=== PATIENT | female | born 1950 | race Caucasian/White ===

== ENCOUNTER 2023-08-28 06:23 | Day surgery (SDC) | payer MEDICARE, OTHER, SELFPAY ==
--- OUTSIDE RECORDS SUMMARY | 2023-08-28 06:27 | XMS RPT_ITS | CCD ---
Author Name Unknown Address [id number] [place] [address] Organization [facility] Care Team Providers Care Account Development Executive Name Role Phone Akash Mccauley Unavailable Unavailable Unavailable Akash Mccauley Unavailable PauloBelLedy Unavailable Unavailable Iliana Maciel Unavailable AKASH MCCAULEY Primary Care Unavailable AKASH MCCAULEY Attending Unavailable Self, Referral Referring Unavailable AKASH MCCAULEY Primary Care Unavailable Sherlyn, Ms. Shraddha Perera Attending Unav ailable Sherlyn, Ms. Shraddha Perera Referring Unav ailable AKASH MCCAULEY Primary Care Unavailable [place], Juan Ronaldpatel Nelson Attending Unavailabl e [place], Juan Nelson Referring Unavailabl e AKASH MCCAULEY Primary Care Unavailable [place], Juan Nelson Attending Unavailabl e Gómez, Mrs. Garveypatel Nelson Referring Unavailabl e MCCAULEYAKASH BOCANEGRA Primary Care Unavailable TAYLOR, MsJuan TRIVEDI Attending Unavailabl e TAYLOR, MsJuan TRIVEDI Referring Unavailabl e Taylor, Ms. Iliana Trivedi Attending Unavailabl e Mando, Dr. Akash Trejo Primary Care Unavailab le GÓMEZ, Juan NELSON Attending Unavailabl e GÓMEZ, Juan NELSON Referring Unavailabl e Mando, Dr. Akash Trejo Primary Care Unavailab le Mando, Dr. Akash Trejo Primary Care Unavailab le Mando, Dr. Akash Trejo Attending Dr. Akash Luna Referring UnavailAkash Story MD Primary Care Provider AKASH MCCAULEY Attending Unavailable AKASH MCCAULEY Primary Care Unavailable Taylorpat MILLERIliana Unavailable AKASH MCCAULEY Referring Unavailable AKASH MCCAULEY Primary Care Unavailable AKASH MCCAULEY Referring Unavailable AKASH MCCAULEY Primary Care Unavailable AKASH MCCAULEY Primary Care Unavailable Allergies Allergy Classification Reported Allergen(s) Allergy Type Date of Onset Reaction(s) Facility Novobiocin (5 sources) Novobiocin; Translations: [novobiocin] Drug Allergy IU-Bwjlcezbeu-G [facility] Work Phone: Unclassified (17 sources) Novocain SOLN; Translations: [Novocain SOLN] Allergy to drug (finding) Nausea EN-Tzdmfdebcw-S [facility] Work Phone: (20 sources) Novobiocin; Translations: [novobiocin] Drug Allergy 08-07-2023 Unknown [facility] (8 sources) Procaine; Translations: [PROCAINE] Drug Allergy 08-07-2023 Nausea Only [facility] Work Phone: Medications Current Medications Medication Drug Class(es) Dates Sig (Normalized) Sig (Original) [id number] 200 actuat albuterol 0.09 mg/actuat metered dose inhaler (20 sources) beta2-Adrenergic Agonist Start: 08-07-2023 take 2 puff(s) by inhalation every four hours for wheezing albuterol 90 mcg/actuation inhaler Indications: Asthmatic bronchitis without complication, unspecified asthma severity, unspecified whether persistent Inhale 2 puffs every 4 hours if needed for wheezing or shortness of breath. 18 g 2 08/07/2023 Active Completed/Discontinued Medications Medication Drug Class(es) Dates Sig (Normalized) Sig (Original) atorvastatin 20 mg oral tablet (1 source) HMG-CoA Reductase Inhibitor Start: 01-15-2022 take 1 tablet by mouth at bedtime Atorvastatin Calcium 20 MG Oral Tablet TAKE 1 TABLET AT BEDTIME. Quantity: 30 Refills: 5 Ordered: 15-Jan-2022 Ronald Townsend Start : 15-Jan-2022 Active azithromycin 250 mg oral tablet (1 source) Macrolide Antimicrobial Start: 05-22-2022 Azithromycin 250 MG Oral Tablet TAKE 2 TABLETS ON DAY 1 THEN TAKE 1 TABLET A DAY FOR 4 DAYS. Quantity: 1 Refills: 0 Ordered: 22-May-2022 Taylorpat MILLER Iliana Start : 22-May-2022 Active Elderberry Zinc/Vit C/Immune Mouth/Throat Lozenge (12 sources) Elderberry Zinc/ Vit C/Immune Mouth/Throat Lozenge Quantity: 0 Refills: 0 Ordered: 11-May-2021 DO Active nitrofurantoin, macrocrystals 25 mg / nitrofurantoin, monohydrate 75 mg oral capsule (4 sources) Nitrofuran Antibacterial Start: 10-20-2021 End: 11-02-2021 take 1 capsule by mouth twice daily Nitrofurantoin Monohyd Macro 100 MG Oral Capsule Take 1 capsule twice daily Quantity: 14 Refills: 0 Ordered: 20-Oct-2021 Shraddha Barrientos Start : 20-Oct-2021 End : 02-Nov-2021 Complete ondansetron 4 mg oral tablet (1 source) Serotonin-3 Receptor Antagonist Start: 07-17-2021 take 1 tablet by mouth every eight hours Ondansetron HCl - 4 MG Oral Tablet TAKE 1 TABLET Every 8 hours PRN Quantity: 3 Refills: 0 Ordered: 17-Jul-2021 Tom Lu MD Start : 17-Jul-2021 Active phenazopyridine hydrochloride 100 mg oral tablet (4 sources) Start: 10-20-2021 End: 11-02-2021 take 1 tablet by mouth every six hours as needed Pyridium 100 MG Oral Tablet TAKE 1 TABLET EVERY 6 HOURS NEEDED. Quantity: 12 Refills: 0 Ordered: 20-Oct-2021 Shraddha Barrientos Start : 20-Oct-2021 End : 02-Nov-2021 Complete Vitamin D CAPS (17 sources) Vitamin D CAPS Quantity: 0 Refills: 0 Ordered: 08-Aug-2020 DO Active Womens Daily Formula Oral Tablet (17 sources) Start: 01-04-2020 take 1 tablet by mouth once daily Womens Daily Formula Oral Tablet TAKE 1 TABLET DAILY. Quantity: 0 Refills: 0 Ordered: 04-Jan-2020 Iliana Dumont Start : 04-Jan-2020 Active Problems Active Problems Problem Classification Problem Date Documented Da te Episodic/Chronic Asthma (20 sources) Mild intermittent asthma; Translations: [Asthma, unspecified type, with (acute) exacerbation] Onset: 05-22-2022 Resolved: 10-08-2019 Chronic Deficiency and other anemia (2 sources) Anemia, unspecified; Translations: [Anemia, unspecified] Onset: 08-22-2023 Episodic Disorders of lipid metabolism (20 sources) Hyperlipidemia; Translations: [Other and unspecified hyperlipidemia] Onset: 08-07-2023 08-07-2023 Chronic Genitourinary symptoms and ill-defined conditions (6 sources) Scalding pain on urination ; Translations: [Dysuria] Episodic Immunizations and screening for infectious disease (20 sources) Patient encounter status; Translations: [Other specified vaccination] Onset: 08-07-2023 08-07-2023 Episodic Melanomas of skin (12 sources) Malignant melanoma of upper limb; Translations: [Malignant melanoma of skin of upper limb, including shoulder] Onset: 08-07-2023 08-07-2023 Chronic Menopausal disorders (20 sources) Menopausal syndrome; Translations: [Symptomatic menopausal or female climacteric states] Onset: 07-26-2022 Chronic Other bone disease and musculoskeletal deformities (20 sources) Osteopenia; Translations: [Disorder of bone and cartilage, unspecified] Onset: 08-07-2023 08-07-2023 Episodic Other bone disease and musculoskeletal deformities (1 source) Other specified disorders of bone density and structure, multiple sites; Translations: [Oth disrd of bone density and structure, multiple sites] Onset: 07-26-2022 Episodic Other circulatory disease (1 source) Other specified symptoms and signs involving the circulatory and respiratory systems; Translations: [Oth symptoms and signs involving the circ and resp systems] Onset: 05-22-2022 Episodic Other connective tissue disease (13 sources) Tendinitis of right rotator cuff; Translations: [Disorders of bursae and tendons in shoulder region, unspecified] Onset: 08-07-2023 08-07-2023 Episodic Other female genital disorders (15 sources) History of gynecological disorder; Translations: [Personal history of other genital system and obstetric disorders] Episodic Other lower respiratory disease (2 sources) Dyspnea; Translations: [Shortness of breath] Episodic Other lower respiratory disease (15 sources) Dyspnea on exertion; Translations: [Shortness of breath] Episodic Other non-traumatic joint disorders (11 sources) Shoulder pain; Translations: [Pain in joint, shoulder region] 05-10-2021 Episodic Other nutritional; endocrine; and metabolic disorders (2 sources) Obesity; Translations: [Obesity, unspecified] Chronic Other nutritional; endocrine; and metabolic disorders (6 sources) Overweight in adulthood with body mass index of 25 or more but less than 30; Translations: [Overweight] Onset: 08-07-2023 08-07-2023 Episodic Other nutritional; endocrine; and metabolic disorders (2 sources) Overweight; Translations: [Overweight] Onset: 08-07-2023 Episodic Other nutritional; endocrine; and metabolic disorders (2 sources) Body mass index (BMI) 27.0-27.9, adult; Translations: [Body mass index (BMI) 27.0-27.9, adult] Onset: 08-07-2023 Episodic Other screening for suspected conditions (not mental disorders or infectious disease) (15 sources) Encounter for screening for osteoporosis; Translations: [Encounter for other screening for malignant neoplasm of breast] Onset: 01-26-2022 Episodic Other skin disorders (2 sources) Disorder of skin; 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] Episodic Other upper respiratory infections (1 source) Upper respiratory infection; Translations: [Acute upper respiratory infections of unspecified site] Episodic Residual codes; unclassified (2 sources) Menopause present; Translations: [Asymptomatic postmenopausal status (age-related) (natural)] Episodic Residual codes; unclassified (4 sources) Asymptomatic menopausal state; Translations: [Asymptomatic menopausal state] Onset: 07-26-2022 Episodic Sprains and strains (9 sources) Sprain of shoulder; Translations: [Sprains and strains of other specified sites of shoulder and upper arm] Episodic Unclassified (2 sources) RT ARM PAIN 05-10-2021 Past or Other Problems Problem Classification Problem Date Documented Da te Episodic/Chronic Chronic obstructive pulmonary disease and bronchiectasis (20 sources) Mild chronic obstructive pulmonary disease; Translations: [Chronic airway obstruction, not elsewhere classified] Onset: 08-07-2023 Resolved: 08-07-2023 08-07-2023 Chronic Other circulatory disease (9 sources) Elevated blood pressure; Translations: [Elevated blood pressure reading without diagnosis of hypertension] Onset: 08-07-2023 Resolved: 08-07-2023 08-07-2023 Episodic Other lower respiratory disease (9 sources) Persistent cough; Translations: [Cough] Onset: 08-07-2023 Resolved: 08-07-2023 08-07-2023 Episodic Other nutritional; endocrine; and metabolic disorders (20 sources) Obese class I; Translations: [Obesity, unspecified] Onset: 08-07-2023 Resolved: 08-07-2023 08-07-2023 Chronic Unclassified (5 sources) Onset: 08-07-2023 08-07-2023 Results Test Name Value Interpretation Reference Range Facil ity Vital Signs Date Time Vital Sign Value Performing Clinician Facility 08-07-2023 11:46-0500 Body height 158.8 cm Akash Mccauley MD Work Phone: [facility] 08-07-2023 11:46-0500 Body mass index (BMI) [Ratio] 27.36 kg/m2 Akash Mccauley MD Work Phone: [facility] 08-07-2023 11:46-0500 Body weight 68.95 kg Akash Mccauley MD Work Phone: [facility] 08-07-2023 11:46-0500 Diastolic blood pressure 72 mm[Hg] Akash Mccauley MD Work Phone: [facility] 08-07-2023 11:46-0500 Heart rate 85 /min Akash Mccauley MD Work Phone: [facility] 08-07-2023 11:46-0500 SaO2% (BldA) [Mass fraction] 99 % Akash Mccauley MD Work Phone: [facility] 08-07-2023 11:46-0500 Systolic blood pressure 118 mm[Hg] Akash Mccauley MD Work Phone: [facility] 07-11-2022 08:44-0500 Body height 157.48 cm Akash O Mccauley Work Phone: [facility] Work Phone: 07-11-2022 08:44-0500 Body mass index (BMI) [Ratio] 30.73 kg/m2 Akash O Mccauley Work Phone: [facility] Work Phone: 07-11-2022 08:44-0500 Body surface area Derived from formula 1.77 m2 Akash O Mccauley Work Phone: [facility] Work Phone: 07-11-2022 08:44-0500 Body weight 76.2 kg Akash O Mccauley Work Phone: [facility] Work Phone: 07-11-2022 08:44-0500 Diastolic blood pressure 82 mm[Hg] Akash O Mccauley Work Phone: [facility] Work Phone: 07-11-2022 08:44-0500 Heart rate 72 /min Akash O Mccauley Work Phone: [facility] Work Phone: 07-11-2022 08:44-0500 Systolic blood pressure 140 mm[Hg] Akash O Mccauley Work Phone: [facility] Work Phone: 05-22-2022 08:30-0400 Body height 157.48 cm Akash O Mccauley Work Phone: [facility] Work Phone: 05-22-2022 08:30-0400 Body mass index (BMI) [Ratio] 30.18 kg/m2 Akash O Mccauley Work Phone: [facility] Work Phone: 05-22-2022 08:30-0400 Body surface area Derived from formula 1.76 m2 Akash O Mccauley Work Phone: [facility] Work Phone: 05-22-2022 08:30-0400 Body temperature 97.5 [degF] Akash O Mccauley Work Phone: [facility] Work Phone: 05-22-2022 08:30-0400 Body weight 74.84 kg Akash O Mccauley Work Phone: [facility] Work Phone: 05-22-2022 08:30-0400 Diastolic blood pressure 80 mm[Hg] Akash O Mccauley Work Phone: [facility] Work Phone: 05-22-2022 08:30-0400 Heart rate 72 /min Akash O Mccauley Work Phone: [facility] Work Phone: 05-22-2022 08:30-0400 Systolic blood pressure 138 mm[Hg] Akash O Mccauley Work Phone: [facility] Work Phone: 01-15-2022 12:57-0400 Systolic blood pressure 142 mm[Hg] Akash O Mccauley Work Phone: [facility] Work Phone: 01-11-2022 08:21-0400 Body height 157.48 cm Akash O Mccauley Work Phone: [facility] Work Phone: 01-11-2022 08:21-0400 Body mass index (BMI) [Ratio] 29.71 kg/m2 Akash O Mccauley Work Phone: [facility] Work Phone: 01-11-2022 08:21-0400 Body surface area Derived from formula 1.75 m2 Akash O Mccauley Work Phone: [facility] Work Phone: 01-11-2022 08:21-0400 Body weight 73.68 kg Akash O Mccauley Work Phone: [facility] Work Phone: 01-11-2022 08:21-0400 Diastolic blood pressure 70 mm[Hg] Akash O Mccauley Work Phone: [facility] Work Phone: 01-11-2022 08:21-0400 Heart rate 92 /min Akash O Mccauley Work Phone: [facility] Work Phone: 01-11-2022 08:21-0400 Systolic blood pressure 142 mm[Hg] Akash O Mccauley Work Phone: [facility] Work Phone: 11-02-2021 13:54-0400 Body height 157.48 cm Akash O Mccauley Work Phone: [facility] Work Phone: 11-02-2021 13:54-0400 Body mass index (BMI) [Ratio] 29.37 kg/m2 Akash O Mccauley Work Phone: [facility] Work Phone: 11-02-2021 13:54-0400 Body surface area Derived from formula 1.74 m2 Akash O Mccauley Work Phone: [facility] Work Phone: 11-02-2021 13:54-0400 Body weight 72.83 kg Akash O Mccauley Work Phone: [facility] Work Phone: 11-02-2021 13:54-0400 Diastolic blood pressure 72 mm[Hg] Akash O Mccauley Work Phone: [facility] Work Phone: 11-02-2021 13:54-0400 Heart rate 72 /min Akash O Mccauley Work Phone: [facility] Work Phone: 11-02-2021 13:54-0400 Systolic blood pressure 126 mm[Hg] Akash O Mccauley Work Phone: [facility] Work Phone: 10-20-2021 09:39-0400 Body height 157.48 cm Akash O Mccauley Work Phone: [facility] Work Phone: 10-20-2021 09:39-0400 Body mass index (BMI) [Ratio] 29.63 kg/m2 Akash O Mccauley Work Phone: [facility] Work Phone: 10-20-2021 09:39-0400 Body surface area Derived from formula 1.75 m2 Akash O Mccauley Work Phone: [facility] Work Phone: 10-20-2021 09:39-0400 Body weight 73.48 kg Akash O Mccauley Work Phone: [facility] Work Phone: 10-20-2021 09:39-0400 Diastolic blood pressure 82 mm[Hg] Akash O Mccauley Work Phone: [facility] Work Phone: 10-20-2021 09:39-0400 Heart rate 76 /min Akash O Mccauley Work Phone: [facility] Work Phone: 10-20-2021 09:39-0400 Systolic blood pressure 138 mm[Hg] Akash O Mccauley Work Phone: [facility] Work Phone: 05-23-2021 11:06-0400 Body height 157.48 cm Akash Eliaser Work Phone: [facility] [address] Work Phone: 05-23-2021 11:06-0400 Body mass index (BMI) [Ratio] 31.14 kg/m2 Akash Eliaser Work Phone: [facility] [address] Work Phone: 05-23-2021 11:06-0400 Body surface area Derived from formula 1.79 m2 Akash Colladoyder Work Phone: [facility] [address] Work Phone: 05-23-2021 11:06-0400 Body temperature 97.7 [degF] Akash Eliaser Work Phone: [facility] [address] Work Phone: 05-23-2021 11:06-0400 Body weight 77.23 kg Akash Mccauley Work Phone: [facility] [address] Work Phone: 05-23-2021 11:06-0400 Diastolic blood pressure 82 mm[Hg] Akash Cinthya Mccauley Work Phone: [facility] [address] Work Phone: 05-23-2021 11:06-0400 Heart rate 79 /min Akash Cinthya Mccauley Work Phone: [facility] [address] Work Phone: 05-23-2021 11:06-0400 Systolic blood pressure 149 mm[Hg] Akash Mendes Mccauley Work Phone: [facility] 300 Work Phone: 05-11-2021 08:54-0400 Body height 157.48 cm Akash Mccauley Work Phone: [facility] 300 Work Phone: 05-11-2021 08:54-0400 Body mass index (BMI) [Ratio] 30.91 kg/m2 Akash Mccauley Work Phone: [facility] 300 Work Phone: 05-11-2021 08:54-0400 Body surface area Derived from formula 1.78 m2 Akash Mccauley Work Phone: [facility] 300 Work Phone: 05-11-2021 08:54-0400 Body temperature 98.6 [degF] Akash Mccauley Work Phone: [facility] 300 Work Phone: 05-11-2021 08:54-0400 Body weight 76.66 kg Akash Mccauley Work Phone: [facility] 300 Work Phone: 05-11-2021 08:54-0400 Diastolic blood pressure 60 mm[Hg] Akash Mccauley Work Phone: [facility] 300 Work Phone: 05-11-2021 08:54-0400 Systolic blood pressure 126 mm[Hg] Akash Mccauley Work Phone: [facility] 300 Work Phone: 05-10-2021 11:38-0400 Body height 157.4 cm Akash Mccauley Other Phone: [facility] 05-10-2021 11:38-0400 Body temperature 98.06 [degF] Akash Mccauley Other Phone: [facility] 05-10-2021 11:38-0400 Diastolic blood pressure 79 mm[Hg] Akash Mccauley Other Phone: [facility] 05-10-2021 11:38-0400 Heart rate 79 /min Akash Eliaser Other Phone: [facility] 05-10-2021 11:38-0400 SaO2% (BldA) [Mass fraction] 95 % Akash Eliaser Other Phone: [facility] 05-10-2021 11:38-0400 Systolic blood pressure 134 mm[Hg] Akash Eliaser Other Phone: [facility] 02-01-2021 10:34-0400 Body height 157.48 cm Akash O Mccauley Work Phone: [facility] Work Phone: 02-01-2021 10:34-0400 Body mass index (BMI) [Ratio] 30.59 kg/m2 Akash O Mccauley Work Phone: [facility] Work Phone: 02-01-2021 10:34-0400 Body surface area Derived from formula 1.77 m2 Akash O Mccauley Work Phone: [facility] Work Phone: 02-01-2021 10:34-0400 Body weight 75.86 kg Akash O Mccauley Work Phone: [facility] Work Phone: 02-01-2021 10:34-0400 Diastolic blood pressure 80 mm[Hg] Akash O Mccauley Work Phone: [facility] Work Phone: 02-01-2021 10:34-0400 Heart rate 68 /min Akash O Mccauley Work Phone: [facility] Work Phone: 02-01-2021 10:34-0400 Systolic blood pressure 122 mm[Hg] Akash O Mccauley Work Phone: [facility] Work Phone: 01-04-2021 08:08-0400 Body height 157.48 cm Akash Eliaser Work Phone: [facility]-R[facility]Ttzz[facility] [address] [place] Work Phone: 01-04-2021 08:08-0400 Body mass index (BMI) [Ratio] 30.76 kg/m2 Akash Cinthya ColladoMccauley Work Phone: ZZ-Sssqiprxjb-Pseykd [address] [place] Work Phone: 01-04-2021 08:08-0400 Body surface area Derived from formula 1.78 m2 Akash Eliaser Work Phone: IY-Svstyqohvo-Lynpic d [address] [place] Work Phone: 01-04-2021 08:08-0400 Body weight 76.29 kg Akash Eliaser Work Phone: PI-Nlpuusofrn-Whuydq [address] [place] Work Phone: 01-04-2021 08:08-0400 Diastolic blood pressure 64 mm[Hg] Akash Colladoyder Work Phone: EO-Wpqoitanex-Aprfws d [address] [place] Work Phone: 01-04-2021 08:08-0400 Heart rate 68 /min Akash Eliaser Work Phone: CZ-Dnhlpsttpj-Lowivt [address] [place] Work Phone: 01-04-2021 08:08-0400 Systolic blood pressure 120 mm[Hg] Akash O Mccauley Work Phone: YH-Mfearyjkcw-Mvujqm [address] [place] Work Phone: Encounters Encounter Date Encounter Type Care Provider Facility Start: 08-22-2023 End: 08-23-2023 ambulatory [facility] Start: 08-22-2023 End: 08-22-2023 Subsequent hospital visit by physician [address] Procedures Date Procedure Procedure Detail Performing Clinician Start: 08-22-2023 CT CARDIAC SCORING W O IV CONTRAST AKASH MCCAULEY Start: 08-22-2023 CBC W Auto Different ial panel - Blood AKASH MCCAULEY Start: 08-22-2023 Comprehensive metabo lic 2000 panel - Serum or Plasma AKASH MCCAULEY Start: 08-22-2023 Ferritin [Mass/volum e] in Serum or Plasma AKASH MCCAULEY Start: 08-22-2023 IRON AND TIBC AKASH ARNOLD Start: 08-22-2023 Lipid panel AKASH BOCANEGRA Start: 08-22-2023 Ct heart no contrast quant eval coronry calcium Akash Mccauley MD Work Phone: Start: 08-22-2023 Lipid 1996 panel - S mark or Plasma [facility] Start: 08-21-2023 BI MAMMO BILATERAL S CREENING TOMOSYNTHESIS AKASH MCCAULEY Start: 08-21-2023 End: 08-21-2023 Screening digital breast tomosynthesis bi Akash Mccauley MD Work Phone: Start: 08-07-2023 PNEUMOCOCCAL CONJUGA TE VACCINE 20-VALENT IM AKASH MCCAULEY Start: 01-26-2022 Mammography Akash bocanegra MD Work Phone: Start: 01-12-2022 Lipid 1996 panel - S mark or Plasma Akash Mccauley MD Work Phone: Start: 01-12-2021 Echocardiography Akash Mccauley Work Phone: Start: 02-24-2020 Colonoscopy Akash bocanegra MD Work Phone: Start: 02-24-2020 Colonoscopy Akash andre Work Phone: Plan of Treatment Date Care Activity Detail Author Start: 02-23-2030 Screening for malignant neoplasm of colon [facility] Start: 08-22-2028 Lipid panel Lipid Panel [facility] Start: 01-12-2027 Lipid panel Lipid Panel [facility] Start: 08-21-2024 Screening for malignant neoplasm of breast Mammogram [facility] Start: 08-08-2024 Medicare Annual Wellness Visit Medicare Annual Wellness Visit (AWV) [facility] Start: 08-06-2024 End: 08-06-2024 Patient encounter procedure 08/06/2024 10:00 AM EST Office Visit [facility] [address] [facility] [address] [place] [id number] Asa Alegria PA-C [address] [facility] [address] [place] [id number] [facility] Start: 08-22-2023 End: 08-22-2023 Patient encounter procedure 08/22/2023 8:00 AM EST Appointment [address] [id number] [facility] Start: 08-07-2023 End: 08-07-2024 CBC W Auto Differential panel - Blood CBC and Auto Differential Lab Routine Asthmatic bronchitis without complication, unspecified asthma severity, unspecified whether persistent Expected: 08/07/2023 (Approximate), Expires: 08/07/2024 [facility] Work Phone: Immunizations Immunization Date Immunization Notes Care Provider Fa yahaira 08-07-2023 Pneumococcal conjuga te vaccine, 20-valent (PREVNAR 20) [facility] Work Phone: 01-01-2019 pneumococcal conjuga te vaccine, 13 valent; Translations: [Prevnar 13 Intramuscular Suspension] Akash Mccauley Work Phone: [facility] Work Phone: Payers Date Payer Category Payer Medicare [id number] 2015 Medicare MEDICARE MEDICAR E PART A AND B [id number] 2015-Present [address] [place] [address] [id number] 2015 Private Health Insurance [employer] [id number] 2015-Present [phone] [address] [address] [place] [address] [id number] 2015 Unknown 2015 Unknown [id number] 1950 Unknown [id number] 2.16.840.1.737407.3.579. 2.356 1950 Unknown [id number] 2.16.840.1.861797.3.579. 2.356 1950 Unknown [id number] 2.16.840.1.523128.3.579. 2.356 1950 Unknown [id number] 2.16.840.1.457687.3.579. 2.356 1950 Unknown [id number] 2.16.840.1.087823.3.579. 2.356 1950 Unknown [id number] 2.16.840.1.834774.3.579. 2.1069 1950 Unknown [id number] 2.16.840.1.769707.3.579. 2.1069 1950 Unknown [id number] 2.16.840.1.145577.3.579. 2.1069 1950 Unknown [id number] 2.16.840.1.759020.3.579. 2.1244 1950 Unknown [id number] 2.16.840.1.095055.3.579. 2.1243 1950 Unknown [id number] 2.16.840.1.711299.3.579. 2.1243 1950 Unknown [id number] 2.16.840.1.036120.3.579. 2.1245 Social History Date Type Detail Facility Start: 08-07-2023 Former smoker Former smoker [address] Work Phone: Tobacco smoking consumption unknown [facility] Start: 08-07-2023 Tobacco smoking status NHIS Ex-smoker [facility] Work Phone: End: 07-29-1974 History of tobacco use Current smoker [facility] Work Phone: End: 07-29-1974 History of tobacco use Cigarette Smoker [facility] Work Phone: Start: 08-07-2023 Tobacco use and exposure Smokeless tobacco non-user [facility] Work Phone: Start: 08-07-2023 Alcohol intake Current drinke r of alcohol (finding) [facility] Work Phone: Start: 08-07-2023 Tobacco use panel [facility] Work Phone: Start: 08-07-2023 Alcohol Comment occasional [facility] Work Phone: Start: 1950 Sex Assigned At Not on file [facility] Work Phone: Start: 07-28-2023 End: 08-21-2023 Exposure to SARS-CoV-2 (event) Not sure [facility] Clinical Notes 01-26-2020 to 08-07-2023 Akash Mccauley MD - 08/07/2023 11:30 AM EST Note Date & Type Note Facility 08-07-2023 History of Present illness Narrative Subjective Reason for Visit: Ciera Delgadillo is an 72 y.o. female here for a Medicare Wellness visit. Past Medical, Surgical, and Family History reviewed and updated in chart. Reviewed all medications by prescribing practitioner or clinical pharmacist (such as prescriptions, OTCs, herbal therapies and supplements) and documented in the medical record. HPI Asthma and COPD - rare albuterol usage. Needs refill to freshen. She is to get a monitor for the cough screening for reflux. To have EGD She has been to Pulmonology. To have a scope Melanoma a few years ago. Every 6 months with dermatology . Overweight down 16 pounds over the year Hyperlipidemia - up a year ago and declines meds. FMH of CAD in mother who was smoker..Negative stress when she had Covid. Will get CACS. Did smoke as teen. Pneumovax today Colonoscopy 02/24/20 Mammogram 01/26/22 Patient Care Team: Akash Mccauley MD as PCP - General Review of Systems Objective Vitals: BP 118/72 (BP Location: Left arm, Patient Position: Sitting) Pulse 85 Ht 1.588 m (5' 2.5 ) Wt 68.9 kg (152 lb) SpO2 99% BMI 27.36 kg/m Physical Exam Vitals reviewed. Constitutional: General: She is not in acute distress. Appearance: Normal appearance. HENT: Head: Normocephalic. Right Ear: Tympanic membrane, ear canal and external ear normal. Left Ear: Tympanic membrane, ear canal and external ear normal. Ears: Comments: Hearing aids Nose: Nose normal. Mouth/Throat: Pharynx: Oropharynx is clear. Eyes: Extraocular Movements: Extraocular movements intact. Conjunctiva/sclera: Conjunctivae normal. Pupils: Pupils are equal, round, and reactive to light. Neck: Vascular: No carotid bruit. Cardiovascular: Rate and Rhythm: Normal rate and regular rhythm. Pulses: Normal pulses. Heart sounds: Normal heart sounds. No murmur heard. Pulmonary: Effort: Pulmonary effort is normal. No respiratory distress. Breath sounds: Normal breath sounds. Abdominal: General: Abdomen is flat. Bowel sounds are normal. There is no distension. Palpations: Abdomen is soft. There is no mass. Tenderness: There is no abdominal tenderness. Musculoskeletal: Cervical back: Normal range of motion and neck supple. No tenderness. Lymphadenopathy: Cervical: No cervical adenopathy. Skin: General: Skin is warm and dry. Findings: No rash. Neurological: General: No focal deficit present. Mental Status: She is alert and oriented to person, place, and time. Psychiatric: Mood and Affect: Mood normal. Thought Content: Thought content normal. Judgment: Judgment normal. 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 She was treated for UTI in 10/17/21 with appropriate antibiotic coarse of Macrobid for 7 days. Patient reports symptoms remaining are aching and tired, doesn t feel as though UTI has completely resolved. She denies any dysuria or other urinary symptoms. No fever, N/V or pelvic pain. Patients denies any urinary incontinence and is not sexually active.She reports taking a bubble bath with a bath bomb 1-2 days before UTI symptoms started on 10/17/21. -[facility] Work Phone: 10-17-2021 History of Present illness Narrative Ciera is a 70 yo female, here today with complaints of possible UTI. She was treated for UTI in 10/17/21 with appropriate antibiotic coarse of Macrobid for 7 days. Patient reports symptoms remaining are aching and tired, doesn t feel as though UTI has completely resolved. She denies any dysuria or other urinary symptoms. No fever, N/V or pelvic pain. Patients denies any urinary incontinence and is not sexually active.She reports taking a bubble bath with a bath bomb 1-2 days before UTI symptoms started on 10/17/21. [facility] Work Phone: 05-09-2021 History of Present illness August Vang is a 70-year-old female presenting here for follow-up of her right shoulder injury from a couple weeks ago. She states pain is well controlled, she is doing some home exercises with improved range of motion. She has a friend that is an occupational therapist, and she is doing some gentle stretching and exercises with good tolerance. She takes naproxen on a as needed basis it does help when she takes it she is also using Biofreeze with good symptom improvement. She has not done any work overhead and minimal lifting. She is using caution to not overuse her left arm. [facility] Work Phone: 07-14-2020 History of Present illness Narrative Date of symptoms 07/14/2020Date of positive test 07/16/2021 patient is unvaccinated no history of Covid her oxygen home sats have been above 90%'sHAstuffyfever t 100 + took motrinno cpno calf pain or swellingsmoker formerwould like monoclonal he is reviewed the 5 page PDF. Patient states she is susceptible to nausea with IVs. [facility] Work Phone: 01-26-2020 History of Present illness Narrative Here for yearly check.Mammogram last year done 01/03/2020. Normal.Previous DEXA 01/20/2020, OsteopeniaTAHBSO not due to cancer. Denies vaginal discharge or other concernsColonoscopy 01/25/2020.HYPERLIPIDEMIA - Did not start Crestor last year as advised. Had pneumonia during that time and never started the medication. Not interested in starting the medicationSOB ON EXERTION - Would be interested in getting a nebulizer machine. Has used her granddaughter's machine for the past 1-2 years since she had pneumonia. Will occasionally have episodes of coughing and SOB. Uses the machine maybe every 1-3 weeks. No triggers that she has figured out. Sometimes walks without SOB, sometimes experiences SOB. Denies CP. FH mother with heart disease, however she was a smoker.Has been exercising. Walking with friend. Walks about 3-5 miles daily.Has been traveling with a group of 5 widows [facility] Work Phone: documented in this encounter [facility] Work Phone: Evaluation note* Diagnosis Screening mammogram, encounter for documented in this encounter [facility] Work Phone: Evaluation note* Diagnosis Ischemic heart disease screen Screening for ischemic heart disease documented in this encounter [facility] Work Phone: Evaluation note* Diagnosis Screening mammogram, encounter for documented in this encounter [facility] Work Phone: History of Present illness Narrative* Here for follow up * Hasn't started the Crestor yet. Wanting to get through all of her tests before starting this. * PFT's indicate Mild obstructive airway disease. * ECHO and stress test were OK * CXR was OK * Feels like SOB has been improving. Not needing her albuterol daily. Last time she used it was last week once. [facility] Work Phone: History of Present illness Narrative* Here for follow up * Hasn't started the Crestor yet. Wanting to get through all of her tests before starting this. * PFT's indicate Mild obstructive airway disease. * ECHO and stress test were OK * CXR was OK * Feels like SOB has been improving. Not needing her albuterol daily. Last time she used it was last week once. * Has been doing well. No concerns at this time. [facility] Work Phone: History of Present illness Narrative* CIERA DELGADILLO presents with complaints of dysuria. * Associated symptoms include internal burning, urgency, frequency, incontinence, suprapubic pain andbladder spasm, but no hematuria, no flank pain, no fever, no chills, no vaginal discharge, no vaginal itching, no dyspareunia, no nocturia, no vaginal pain, no vulvar pain, no lower back pain, no abdominal pain, no rectal pain, no nausea and no vomiting. * Here for complaints of pelvic pain, pressure, burning with urination and urgency. I episode of incontinence. Took a bath and used a bath bomb approximately one week ago, symptoms started yesterday. Drinking extra water and cranberry juice. [facility] Work Phone: History of Present illness Narrative* The patient is being seen for the subsequent annual wellness visit. * Past Medical, Surgical and Family History: reviewed and updated in chart. * Medications and Supplements: Review of all medications by a prescribing practitioner or clinical pharmacist (such as prescriptions, OTCs, herbal therapies and supplements) documented in the medical record. * No, the patient is not using opioids. * Patient Self Assessment of Health Status: good. * Tobacco use: The patient quit smoking 1974. * Alcohol use: User The patient reports rare alcohol use. * Illicit drug use: Non-User * Current diet: well balanced diet, does consume adequate fluids and does consume caffeine. * Exercise Frequency: regularly. * Depression/Suicide Screening: . * During the past 2 weeks, the patient has not felt down, depressed or hopeless. * During the past 2 weeks, the patient has not felt little interest or pleasure in doing things. * Hearing Impairment: Patient has significant hearing impairment, bilaterally, She uses a hearing aid. * Cognitive Impairment: No cognitive impairment observed, patient or family reported no cognitive impairment. * Bathing: performs independently. * Dressing: performs independently. * Walking: performs independently. * Toileting: performs independently. * Feeding: performs independently. * Personal Hygiene: performs independently. * Bowels: continent. * Bladder: continent. * Managing Finances: performs independently. * Shopping: performs independently. * Managing Medications: performs independently. * Housework / Basic Home Maintenance: performs independently. * Handling Transportation: performs independently. * Preparing Meals: performs independently. * Using the Telephone/ Communication Devices: performs independently. * Falls Risk Screening:. CIERA has not fallen in the last 6 months. * Home safety risk factors: no grab bars in the bathroom. * Advance directives:. Advanced Care Planning discussed and documented advance care plan or surrogatedecision maker documented in the medical record. Patient has living will. Patient has healthcare POA. * Patient's End of Life Decisions: End of life decisions were reviewed with the patient. I agree to follow the patient's decisions. * Additional Information: surrogates - Teddy and Hernesto Marrero. * Since she had COVID-19 over 2 years has had cough and dyspnea with exertion. Dr Skinner manages. She has inhaler to use as needed. Never used inhaled steroid regularly. PFT showed mild obstruction. Shedid not try Prilosec and will try that. And then consider a month of ICS * Has high cholesterol and does not want to take statins. Risk 14. -[facility] Work Phone: Reason for referral (narrative)* Consultation (Routine) - Authorized Specialty Diagnoses / Procedures Referred By Matthew t Referred To Contact Primary Care Diagnoses Routine general medical examination at health care facility Procedures 1 Year Follow Up In Primary Care - Wellness Exam Akash Mccauley MD [address] [facility], [place] [id number] Referral ID Status Reason Start Date Expiration Date V isits Requested Visits Authorized [id number] Authorized 08/07/2023 08/06/2024 1 1 * Imaging (Routine) - Authorized Specialty Diagnoses / Procedures Referred By Contac t Referred To Contact Radiology Diagnoses Screening mammogram, encounter for Procedures BI mammo bilateral screening tomosynthesis Akash Mccauley MD [address] [facility], [place] [phone] Referral ID Status Reason Start Date Expiration Date Visits Requested Visits Authorized [id number] Authorized Perform Procedure 08/07/2023 08/06/2024 1 1 * Imaging (Routine) - Pending Review Specialty Diagnoses / Procedures Referred By Matthew t Referred To Contact Radiology Diagnoses Ischemic heart disease screen Procedures CT cardiac scoring wo IV contrast Akash Mccualey MD [address] [facility], [place] [id number] Referral ID Status Reason Start Date Expiration Date Visits Requested Visits Authorized [id number] Pending Review Perform Procedure 08/07/2023 08/06/2024 1 1 [facility] Work Phone: Summary Purpose Family History No Family History Records FoundUnknown Family Member Name Dates Details Family history of malignant neoplasm of brain: Aunt, Uncle(V16.8, Z80.8) Status:Active Family history of acute myoc ardial infarction: Mother(V17.3, Z82.49) Status:Active Unknown Family Member Name Dates Details Family history of malignant neoplasm of brain: Aunt, Uncle(V16.8, Z80.8) Status:Active Family history of acute myoc ardial infarction: Mother(V17.3, Z82.49) Status:Active Unknown Family Member Name Dates Details Family history of malignant neoplasm of brain: Aunt, Uncle(V16.8, Z80.8) Status:Active Family history of acute myoc ardial infarction: Mother(V17.3, Z82.49) Status:Active Unknown Family Member Name Dates Details Family history of malignant neoplasm of brain: Aunt, Uncle(V16.8, Z80.8) Status:Active Family history of acute myoc ardial infarction: Mother(V17.3, Z82.49) Status:Active Unknown Family Member Name Dates Details Family history of malignant neoplasm of brain: Aunt, Uncle(V16.8, Z80.8) Status:Active Family history of acute myoc ardial infarction: Mother(V17.3, Z82.49) Status:Active Unknown Family Member Name Dates Details Family history of malignant neoplasm of brain: Aunt, Uncle(V16.8, Z80.8) Status:Active Family history of acute myoc ardial infarction: Mother(V17.3, Z82.49) Status:Active Unknown Family Member Name Dates Details Family history of malignant neoplasm of brain: Aunt, Uncle(V16.8, Z80.8) Status:Active Family history of acute myoc ardial infarction: Mother(V17.3, Z82.49) Status:Active Unknown Family Member Name Dates Details Family history of malignant neoplasm of brain: Aunt, Uncle(V16.8, Z80.8) Status:Active Family history of acute myoc ardial infarction: Mother(V17.3, Z82.49) Status:Active Unknown Family Member Name Dates Details Family history of malignant neoplasm of brain: Aunt, Uncle(V16.8, Z80.8) Status:Active Family history of acute myoc ardial infarction: Mother(V17.3, Z82.49) Status:Active Unknown Family Member Name Dates Details Family history of malignant neoplasm of brain: Aunt, Uncle(V16.8, Z80.8) Status:Active Family history of acute myoc ardial infarction: Mother(V17.3, Z82.49) Status:Active Unknown Family Member Name Dates Details Family history of malignant neoplasm of brain: Aunt, Uncle(V16.8, Z80.8) Status:Active Family history of acute myoc ardial infarction: Mother(V17.3, Z82.49) Status:Active Unknown Family Member Name Dates Details Family history of malignant neoplasm of brain: Aunt, Uncle(V16.8, Z80.8) Status:Active Family history of acute myoc ardial infarction: Mother(V17.3, Z82.49) Status:Active Unknown Family Member Name Dates Details Family history of malignant neoplasm of brain: Aunt, Uncle(V16.8, Z80.8) Status:Active Family history of acute myoc ardial infarction: Mother(V17.3, Z82.49) Status:Active Unknown Family Member Name Dates Details Family history of malignant neoplasm of brain: Aunt, Uncle(V16.8, Z80.8) Status:Active Family history of acute myoc ardial infarction: Mother(V17.3, Z82.49) Status:Active Unknown Family Member Name Dates Details Family history of malignant neoplasm of brain: Aunt, Uncle(V16.8, Z80.8) Status:Active Family history of acute myoc ardial infarction: Mother(V17.3, Z82.49) Status:Active Unknown Family Member Name Dates Details Family history of malignant neoplasm of brain: Aunt, Uncle(V16.8, Z80.8) Status:Active Family history of acute myoc ardial infarction: Mother(V17.3, Z82.49) Status:Active Unknown Family Member Name Dates Details Family history of malignant neoplasm of brain: Aunt, Uncle(V16.8, Z80.8) Status:Active Family history of acute myoc ardial infarction: Mother(V17.3, Z82.49) Status:Active Advance Directives No Advanced Directives Records FoundNo Advanced Directives Records FoundNo Advanced Directives Records FoundNo Advanced Directives Records FoundNo Advanced Directives Records FoundNo Advanced Directives Records FoundNo Advanced Directives Records Found Chief Complaint 1 year visit/BE.1 month follow-up.1 month follow-up.pt here for right shoulder pain. xrays from urgent care on 05/10. pt states was picking up vacuum when pain occurred. pain is dull 4-5Patient here for follow-up right shoulder pain. States it is getting better.Patient here for follow-up right shoulder pain. States it is getting better.* Pt states she had positive covid test saturday and would like antibody infusion. * A telephone visit (audio only) between the patient (at the originating site) and the provider (at the distant site) was utilized to provide this telehealth service. * Verbal consent was requested and obtained from CIERA DELGADILLO on this date, 07/17/2021 11:00 AM , for a telehealth visit. burning with urination x1 dayFollow-up UTI.Follow-up UTI.AWV Reason for Referral Specialty Diagnoses / Procedures Referred By Matthew bagley Referred To Contact Radiology Diagnoses Screening mammogram, encounter for Procedures BI mammo bilateral screening tomosynthesis Akash Mccauley MD [address] [facility], [place] [phone] Referral ID Status Reason Start Date Expiration Date Visits Requested Visits Authorized [id number] Authorized Perform Procedure 08/07/2023 08/06/2024 1 1 Specialty Diagnoses / Procedures Referred By Matthew bagley Referred To Contact Radiology Diagnoses Ischemic heart disease screen Procedures CT cardiac scoring wo IV contrast Akash Mccauley MD [address] [facility], [address] [address] Referral ID Status Reason Start Date Expiration Date Visits Requested Visits Authorized [id number] Pending Review Perform Procedure 08/07/2023 08/06/2024 1 1 Additional Source Comments INFORMATION SOURCE (unrecogn ized section and content) DATE CREATED AUTHOR AUTHOR'S ORGANIZ ATION 07/18/2022 [facility] DATE CREATED AUTHOR AUTHOR'S ORGANIZ ATION 07/18/2022 [employer] DATE CREATED AUTHOR AUTHOR'S ORGANIZ ATION 07/28/2022 [facility] DATE CREATED AUTHOR AUTHOR'S ORGANIZ ATION 08/11/2023 [facility] DATE CREATED AUTHOR AUTHOR'S ORGANIZ ATION 08/25/2023 [facility] DATE CREATED AUTHOR AUTHOR'S ORGANIZ ATION 08/26/2023 [facility] <item> Privacy Markings (unrecogniz ed section and content) Section Author: Blevins, Vaishnavi PROHIBITION ON REDISCLOSURE OF CONFIDENTIAL INFORMATION This notice accompanies a disclosure of information concerning a client made to you with the consent of such client. Reason for Visit (unrecogniz ed section and content) Specialty Diagnoses / Procedures Referred By Contac t Referred To Contact Radiology Diagnoses Screening mammogram, encounter for Procedures BI mammo bilateral screening tomosynthesis Akash Mccauley MD [address] [facility], [place] [phone] Referral ID Status Reason Start Date Expiration Date Visits Requested Visits Authorized [id number] Authorized Perform Procedure 08/07/2023 08/06/2024 1 1 Specialty Diagnoses / Procedures Referred By Contac t Referred To Contact Radiology Diagnoses Ischemic heart disease screen Procedures CT cardiac scoring wo IV contrast Akash Mccauley MD [address] [facility] [facility] [place] [phone] Referral ID Status Reason Start Date Expiration Date Visits Requested Visits Authorized [id number] Pending Review Perform Procedure 08/07/2023 08/06/2024 1 1 Care Teams (unrecognized sec tion and content) Account Development Executive Relationship Specialty Start Date End Date Akash Mccauley MD [address] [facility], [facility] [address] [place] [phone] PCP - General 08/19/19 Iliana Maciel APRN-OIL BURNER SERVICER AND INSTALLER [address] [facility], [place] [address] [place] [phone] PCP - MSSP ACO Attributed Provider 01/26/23 Account Development Executive Relationship Specialty Start Date End Date Akash Mccauley MD [address] [facility], [facility] [address] [place] [phone] PCP - General 08/19/19 Iliana Maciel, DYNAMICS AX TECHNICAL ARCHITECT-OIL BURNER SERVICER AND INSTALLER [address] [facility] [address] [place] [address] [facility] - [facility] Attributed Provider 01/26/23 FOR RECORDS PERTAINING TO PATIENTS WHO ARE OR HAVE BEEN ENROLLED IN A CHEMICAL DEPENDENCY/SUBSTANCEABUSE PROGRAM, SOME INFORMATION MAY BE OMITTED. This clinical summary was aggregated from multiple sources. Caution should be exercised in using it in the provision of clinical care. This summary normalizes information from multiple sources, and as a consequence, information in this document may materially change the coding, format and clinical context of patient data. In addition, data may be omitted in some cases. CLINICAL DECISIONS SHOULD BE BASED ON THE PRIMARY CLINICAL RECORDS. [facility] [employer] [facility]. provides no warranty or guarantee of the accuracy or completeness of information in this document.
[2023-08-28 06:57] VITALS: BP 140/65; PULSE 83; RESP 18; TEMP 36.2; O2SAT 100; BMI 27.8
[2023-08-28] MEDS: Lactated Ringers 1,000 ML 15 ML IV (07:08)
[2023-08-28 07:14] LABS: Hematocrit 26.7 % (37-47); Hemoglobin 7.4 g/dL (12.0-15.0)
--- NOTE | 2023-08-28 07:30 | IMM_PTH ---
PATHOLOGY RESULTS PATIENT: NELI DELGADILLO LOC: EN U#:[id number] AGE/SX: 72/F ROOM: RE08/28/[address]: Dr. Rony Rodgers DO : 1950 BED: DIS: 08/28/2023 SPEC #: [id number] RECD: 08/28/23 14:45 STATUS: ROSALINA REQ #: [id number] ANNIE: 08/28/23 07:[address]: Rony Rodgers DEPT: IMMUNOHISTOCHEMISTRY RECD BY: Tanesha Naylor ENTERED: 08/28/23 14:46 SP TYPE: IMMUNO OTHR DR: Dr. Akash Gilmore MD Tissues: Stomach, NOS Procedures: H Pylori (initial) PHYSICIAN & INSTITUTION [place] [id number] SPECIMEN INFORMATION: Tissue Source: A - Gastric ulcer Clinical Info: Cough Specimen Number: [id number] CPT code: 30279 METHODOLOGY: Deparaffinized sections of prefer/formalin-fixed tissue or PAP/DQ stained slides are incubated with monoclonal/polyclonal antibodies/oligonucleotide probes. Localization is made via biotin free immunoperoxidase method. Appropriate controls are performed and reacted as expected. Results on target cell population are indicated in the following table: RESULTS: ANTIBODY / CLONE RESULT Block A H Pylori (polyclonal) negative These tests were developed and their performance characteristics determined by [facility]. They may not have been cleared or approved by the U.S. Food and Drug Administration. The FDA has determined that such clearance or approval is not necessary. The above immunohistochemical/dualISH markers are ordered and reviewed by the Pathologist. INTERPRETATION: A. Gastric ulcer, biopsy: Negative for Helicobacter pylori organisms. AM:bharat 08/29/2023
--- NOTE | 2023-08-28 07:30 | EGD_PTH ---
PATHOLOGY RESULTS PATIENT: NELI DELGADILLO LOC: EN U#:[id number] AGE/SX: 72/F ROOM: RE08/28/[address]: Dr. Rony Rodgers DO : 1950 BED: DIS: 08/28/2023 SPEC #: [id number] RECD: 08/28/23 11:33 STATUS: ROSALINA ANNABEL #: [id number] ANNIE: 08/28/23 07:[address]: Rony Rodgers DEPT: SURGICAL PATHOLOGY RECD BY: Vicky Shannon ENTERED: 08/28/23 11:33 SP TYPE: EGD BIOPSY PENELOPE DR: Dr. Akash Gilmore MD Tissues: Gastric mucous membrane Esophageal mucous membrane Procedures: Special Stain Group II Surgery Specimen Level IV Alcian Blue/PAS (control) HEADER OPERATION: EGD - PH probe biopsy PRE-OP DIAGNOSIS: Cough TISSUE SUBMITTED: A - Gastric ulcer biopsy, B - Random esophagus biopsy MICROSCOPIC DIAGNOSIS A. Gastric ulcer, biopsy: Mucosal ulceration with associated acute inflammation. See comment. B. Esophagus, random biopsy: Gastroesophageal junctional mucosa with mild chronic inflammation. Changes of reflux. No evidence of goblet cell metaplasia. See comment. AM:bharat 08/29/2023 COMMENT A. The results of immunohistochemistry for Helicobacter pylori will be reported separately ([id number]). B. Alcian blue/PAS stain with matched control supports the above diagnosis. MICROSCOPIC DESCRIPTION Slides are reviewed. GROSS DESCRIPTION A - Received in fixative is one container labeled with the patient's name and designated biopsy gastric ulcer. The specimen consists of two irregular fragments of light oswald soft tissue that in aggregate measure 0.6 x 0.3 x 0.1 cm. The specimen is totally submitted in one cassette. B - Received in fixative is one container labeled with the patient's name and designated random esophagus biopsy. The specimen consists of multiple irregular fragments of light oswald soft tissue that in aggregate measure 1.0 x 0.4 x 0.1 cm. The specimen is totally submitted in one cassette. / SJ:bahrat 08/28/2023 TC:3 CPT: 41040 x2, 22606
--- NOTE | 2023-08-28 07:38 | HP.PCM_ITS ---
History and Physical Date of Admission: 08/28/23 72 F who presents to the office today for Pulmonology established 2021 for management of COPD with cough that resolved with treatment. Notes use of Nexium that has been helpful. ROS Const Constitutional: No anorexia, fatigue, fever(s), weight change or sleep problems Eyes Eyes: No change in vision ENT ENT: No abnormal hearing, difficulty swallowing, mouth lesions, tongue swelling or throat swelling Resp Respiratory: No cough or shortness of breath Cardio Cardiology: No chest pain at rest, chest pain with exertion, shortness of breath or dyspnea on exertion Gastro GI: Positive for heartburn; No difficulty swallowing Genitourinary-Female: No difficulty urinating or burning urination Musc Musculoskeletal: No joint pain, joint swelling, muscle weakness or decreased muscle mass Skin Skin: No hair loss in leg, yellowing of the eye, itchy eyes, rash, skin ulcer or skin swelling Neuro Neurology: No abnormal hearing, abnormal movements, confusion, unsteady gait/balance or memory loss Psych Psychiatric: No anxiety, No confusion and No memory loss Endo Endocrine: No fatigue or weight change Aller/Imm Allergy/Immunologic: No itchy eyes, throat swelling or tongue swelling Marcus/Lymp Hematologic/Lymphatic: No easy bleeding, easy bruising or enlarged lymph nodes Exam Const General: cooperative, healthy appearing, comfortable, no acute distress, well developed and well groomed Nutritional Appearance: average body habitus Orientation: alert, awake and oriented x3 HENMT Head: normal to inspection Ears: hearing grossly normal bilaterally Nose: external nose normal Mouth: oral mucosae normal Teeth and gingiva: dentition normal Throat: posterior oropharynx normal Eyes General: appearance normal, both eyes and all related structures Conjunctivae: conjunctivae normal Sclera: sclerae normal Pupils: PERRL EOM: EOM intact bilaterally Neck Neck: normal visual inspection, full ROM, no lymphadenopathy, no meningeal signs, trachea midline and supple Resp Effort & Inspection: normal respiratory effort, able to speak in complete sentences and symmetric chest movement Auscultation: Bilateral: Clear to Auscultation Cardio Palpation: normal PMI Rate: regular rate Rhythm: regular rhythm GI Inspection: normal to inspection and obesity (rotund abdomen) Auscultation: normal bowel sounds Percussion: normal to percussion Palpation: soft and no hepatosplenomegaly Musc Cervical Spine: normal cervical lordosis and cervical ROM normal Thoracic/Lumbar Spine: thoracic and lumbar spine normal to inspection Skin General: no rashes or lesions noted Neuro General: patient alert, patient awake, patient oriented x3, gait normal, tone normal, moves all extremities, no meningeal signs and no focal motor deficits Cranial Nerves: CN's II-XI intact bilaterally and PERRL Cognition: normal cognition Speech: speech normal Gait: normal gait Motor: muscle tone normal throughout Psych Appearance: grossly normal Quality Reporting Tobacco Screening ([facility] 138) Smoking Status: Never smoker Assessment and Plan Assessment and Plan (1) Cough: Status: Acute Qualifiers: Cough type: chronic Qualified Code(s): R05.3 - Chronic cough Plan: 72-year-old with past medical history of 2 COVID infections and likely postviral cough. However cough is responsive to PPI therapy. Therefore we will have her undergo an upper endoscopy with Eid study off of PPI therapy. We will be able to evaluate upper GI tract for any signs of esophagitis, Basurto's esophagus, hiatal hernia, gastritis and all things that are typical and atypical to cause a cough. I have examined the patient and the H&P has been reviewed. There are no clinical changes since date of exam.
[2023-08-28 07:55] VITALS: BP 107/56; BP 140/65; PULSE 87; RESP 18; TEMP 36.4; O2SAT 96
[2023-08-28 08:00] VITALS: BP 101/52; BP 140/65; PULSE 80; RESP 16; O2SAT 95
--- NOTE | 2023-08-28 08:00 | OP.CCLET_ITS ---
08/28/2023 Akash Gilmore Md Re : Upper GI endoscopy procedure for Ciera Mitchell Dear Mando This procedure was performed on Monday, August 28, 2023. My impressions and recommendations are as follows: Impressions : - Abnormal esophageal motility, suspicious for presbyesophagus. - Moderate Schatzki ring. Dilated. - Large hiatal hernia. - Gastric erosions with no bleeding and no stigmata of recent bleeding. - Non-bleeding gastric ulcer with no stigmata of bleeding. Biopsied. - Normal second portion of the duodenum. - Biopsies were taken with a cold forceps for evaluation of eosinophilic esophagitis. - The TREVINO pH capsule was positioned 32 cm from the incisors, which was 6 cm proximal to the GE junction. Recommendations : - Await pathology results. - Continue present medications. - Use Protonix (pantoprazole) 40 mg PO BID for 8 weeks. My findings are described in the full procedure note, which is enclosed. If I can be of further assistance, please feel free to contact me at . Sincerely, Rony Rodgesr, 08/28/2023 7:59:56 AM This report has been signed electronically.
--- NOTE | 2023-08-28 08:00 | OP.EGD_ITS ---
Patient Name: Ciera Mitchell Procedure Date: 08/28/2023 7:29 AM Date of : 1950 Age: 72 Procedure: Upper GI endoscopy Indications: Iron deficiency anemia, Suspected esophageal reflux Providers: Rony Rodgers DO Referring MD: Akash Gilmore Md Medicines: Monitored Anesthesia Care Patient Profile: This is a 72 year old female. Refer to note in patient chart for documentation of history and physical. Patient has symptoms of chronic cough. Complications: No immediate complications. Procedure: Pre-Anesthesia Assessment: - Prior to the procedure, a History and Physical was performed, and patient medications and allergies were reviewed. The patient is competent. The risks and benefits of the procedure and the sedation options and risks were discussed with the patient. All questions were answered and informed consent was obtained. Patient identification and proposed procedure were verified by the physician in the pre-procedure area. Mental Status Examination: alert and oriented. Airway Examination: normal oropharyngeal airway and neck mobility. Respiratory Examination: clear to auscultation. CV Examination: normal. Prophylactic Antibiotics: The patient does not require prophylactic antibiotics. Prior Anticoagulants: The patient has taken no anticoagulant or antiplatelet agents. ASA Grade Assessment: II - A patient with mild systemic disease. After reviewing the risks and benefits, the patient was deemed in satisfactory condition to undergo the procedure. The anesthesia plan was to use monitored anesthesia care (MAC). Immediately prior to administration of medications, the patient was re-assessed for adequacy to receive sedatives. The heart rate, respiratory rate, oxygen saturations, blood pressure, adequacy of pulmonary ventilation, and response to care were monitored throughout the procedure. The physical status of the patient was re-assessed after the procedure. After obtaining informed consent, the endoscope was passed under direct vision. Throughout the procedure, the patient's blood pressure, pulse, and oxygen saturations were monitored continuously. The Endoscope was introduced through the mouth, and advanced to the second part of duodenum. The upper GI endoscopy was accomplished without difficulty. The patient tolerated the procedure well. Scope In: 7:42:59 AM Scope Out: 7:51:44 AM Total Procedure Duration Time 0 hours 8 minutes 45 seconds Findings: Abnormal motility was noted in the esophagus. The cricopharyngeus was normal. There are extra peristaltic waves in the esophageal body. The distal esophagus/lower esophageal sphincter is spastic, but gives up passage to the endoscope. Tertiary peristaltic waves are noted. Biopsies were obtained from the proximal and distal esophagus with cold forceps for histology of suspected eosinophilic esophagitis. A moderate Schatzki ring was found at the gastroesophageal junction. A guidewire was placed and the scope was withdrawn. Dilation was performed with a Savary dilator with no resistance at 45 Fr. The dilation site was examined and showed moderate mucosal disruption. Estimated blood loss was minimal. The TREVINO capsule with delivery system was introduced through the mouth and advanced into the esophagus, such that the TREVINO pH capsule was positioned 32 cm from the incisors, which was 6 cm proximal to the GE junction. Suction was applied to the well of the TREVINO pH capsule to suck in the adjacent mucosa of the esophagus using the external vacuum pump set at a minimum vacuum pressure of 550 mmHg for 30 seconds. The TREVINO pH capsule was then deployed by depressing the plunger on top of the handle to advance the locking pin into the mucosa, thereby attaching the capsule to the esophagus. The plunger was then rotated a quarter turn clockwise to release the capsule from the delivery system. The delivery system was then withdrawn. Endoscopy was utilized for probe placement and diagnostic evaluation. A large hiatal hernia was present. A few localized erosions with no bleeding and no stigmata of recent bleeding were found in the gastric fundus. One non-bleeding cratered gastric ulcer with no stigmata of bleeding was found in the gastric body. The lesion was 4 mm in largest dimension. Biopsies were taken with a cold forceps for histology. Verification of patient identification for the specimen was done. Biopsies were taken with a cold forceps for Helicobacter pylori testing. Verification of patient identification for the specimen was done. The second portion of the duodenum was normal. Impression: - Abnormal esophageal motility, suspicious for presbyesophagus. - Moderate Schatzki ring. Dilated. - Large hiatal hernia. - Gastric erosions with no bleeding and no stigmata of recent bleeding. - Non-bleeding gastric ulcer with no stigmata of bleeding. Biopsied. - Normal second portion of the duodenum. - Biopsies were taken with a cold forceps for evaluation of eosinophilic esophagitis. - The TREVINO pH capsule was positioned 32 cm from the incisors, which was 6 cm proximal to the GE junction. Recommendation: - Await pathology results. - Continue present medications. - Use Protonix (pantoprazole) 40 mg PO BID for 8 weeks. Procedure Code(s): --- Professional --- 52871, Esophagogastroduodenoscopy, flexible, transoral; with insertion of guide wire followed by passage of dilator(s) through esophagus over guide wire 00655, 59,51, Esophagogastroduodenoscopy, flexible, transoral; with biopsy, single or multiple CPT copyright 2021 [employer]. All rights reserved. The codes documented in this report are preliminary and upon medical staff assistant review may be revised to meet current compliance requirements. Rony Rodgers DO 08/28/2023 7:59:56 AM This report has been signed electronically. Number of Addenda: 0 Note Initiated On: 08/28/2023 7:29 AM
[2023-08-28 08:05] VITALS: BP 120/61; BP 140/65; PULSE 78; RESP 16; O2SAT 96
[2023-08-28 08:11] VITALS: BP 108/62; BP 140/65; PULSE 82; RESP 16; TEMP 36.5; O2SAT 95
[2023-08-28 08:37] VITALS: BP 140/65
== END 2023-08-28 09:20 | disposition home or self-care (01) ==
LOC: EN 06:25 → AC 06:26
PROVIDERS: PCP Family Medicine; Referring Provider Family Medicine; Visit Provider Internal Medicine Gastroenterology
PROC: (CPT 43235; principal; 2023-08-28 07:25)
DX: K25.9 Gastric ulcer, unspecified as acute or chronic, without hemorrhage or perforation (principal); K44.9 Diaphragmatic hernia without obstruction or gangrene; D50.9 Iron deficiency anemia, unspecified; R05.3 Chronic cough; Z86.16 Personal history of COVID-19
CPT/HCPCS: 43248; 43239; 85014; 85018; 88305; 88313; 88342; J7120; J2405

== ENCOUNTER → 2023-08-29 | Outpatient (CLI) | payer MEDICARE, OTHER, SELFPAY ==
[2023-08-29 09:47] LABS: Absolute Lymphocyte Count 1.29 X10^3/uL (0.83-4.51); Absolute Neutrophil Count 7.1 X10^3/uL (2.0-7.7); Basophil# 0.03 X10^3/uL; Basophil% 0.3 % (0-1); Eosinophil# 0.06 X10^3/uL; Eosinophils% 0.7 % (0-5); Hematocrit 26.9 % (37-47); Hemoglobin 7.5 g/dL (12.0-15.0); Lymphocyte # 1.29 X10^3/ul (0.83-4.51); Lymphocyte % 14.2 % (19-41); Mean Corp Hgb Conc 27.9 g/dL (32-36); Mean Corpuscular Hgb 21.7 pg (27.0-32.0); Mean Platelet Vol. 9.2 fl (6.2-12.0); Monocyte# 0.62 X10^3/uL; Monocyte% 6.8 % (0-10); NRBC Flagged by Analyzer 0 % (0-5); Neutrophil # 7.06 X10^3/uL (2.7-7.7); Neutrophil % 77.7 % (47-70); Platelet Count 614 K/mm3 (150-450); RBC Distribution Width CV 15.7 % (11.6-14.6); RBC Distribution Width SD 44.4 fl (35.1-43.9); Red Blood Count 3.45 M/mm3 (4.2-5.4); White Blood Count 9.1 K/mm3 (4.4-11.0)
[2023-08-29 10:16] LABS: Vitamin B12 840 pg/mL (211-911)
--- OUTSIDE RECORDS SUMMARY | 2023-08-29 11:09 | XMS RPT_ITS | CCD ---
Author Name Unknown Address [address] [place] [address] Organization [facility] Care Team Providers Care Shot Hole Driller Name Role Phone Akash Mccauley Unavailable Unavailable Unavailable Akash Mccauley Unavailable PauloBelLedy Unavailable Unavailable Iliana Maciel Unavailable AKASH MCCAULEY Primary Care Unavailable AKASH MCCAULEY Attending Unavailable Self, Referral Referring Unavailable AKASH MCCAULEY Primary Care Unavailable Sherlyn, Ms. Shraddha Perera Attending Unav ailable Sherlyn, Ms. Shraddha Perera Referring Unav ailable AKASH MCCAULEY Primary Care Unavailable Herndon, Juan Ronaldpatel Nelson Attending Unavailabl e Herndon, Juan Nelson Referring Unavailabl e AKASH MCCAULEY Primary Care Unavailable Herndon, Juan Nelson Attending Unavailabl e Gómez, Mrs. [...] Unavailab le Mando, Dr. Akash Trejo Attending Unavailab le Mando, Dr. Akash Trejo Referring UnavailAkash Story MD Primary Care Provider AKASH MCCAULEY Attending Unavailable AKASH MCCAULEY Primary Care Unavailable Taylor MILLERIliana Unavailable AKASH MCCAULEY Primary Care Unavailable AKASH MCCAULEY Referring Unavailable AKASH MCCAULEY Primary Care Unavailable AKASH MCCAULEY Referring Unavailable AKASH MCCAULEY Primary Care Unavailable Allergies Allergy Classification Reported Allergen(s) Allergy Type Date of Onset Reaction(s) Facility Novobiocin (5 sources) Novobiocin; Translations: [novobiocin] Drug Allergy [facility] Work Phone: Unclassified (17 sources) Novocain SOLN; Translations: [Novocain SOLN] Allergy to drug (finding) Nausea [facility] [employer] Work Phone: (20 sources) Novobiocin; Translations: [novobiocin] Drug Allergy 08-07-2023 Unknown [facility] (8 sources) Procaine; Translations: [PROCAINE] Drug Allergy 08-07-2023 Nausea Only [facility] Work Phone: Medications Current Medications Medication Drug Class(es) Dates Sig (Normalized) Sig (Original) [id number] 200 actuat albuterol 0.09 mg/actuat metered dose [...] 158.8 cm Akash Mccauley MD Work Phone: [facility] 08-07-2023 11:46-0500 Body mass index (BMI) [Ratio] 27.36 kg/m2 Akash Mccauley MD Work Phone: [facility] 08-07-2023 11:46-0500 Body weight 68.95 kg Akash Mccauley MD Work Phone: [facility] 08-07-2023 11:46-0500 Diastolic blood pressure 72 mm[Hg] Akash Mccauley MD Work Phone: [facility] 08-07-2023 11:46-0500 Heart rate 85 /min Akash Mccauley MD Work Phone: [facility] 08-07-2023 11:46-0500 SaO2% (BldA) [Mass fraction] 99 % Akash Mccauley MD Work Phone: [facility] 08-07-2023 11:46-0500 Systolic blood pressure 118 mm[Hg] Akash Mccauley MD Work Phone: [facility] 07-11-2022 08:44-0500 Body height 157.48 cm Akash O Mccauley Work Phone: [facility] Work Phone: 07-11-2022 08:44-0500 Body mass index (BMI) [Ratio] 30.73 kg/m2 Akash O Mccauley Work Phone: [facility] Work Phone: 07-11-2022 08:44-0500 Body surface area Derived from formula 1.77 m2 Akash O Mccauley Work Phone: [facility] Work Phone: 07-11-2022 08:44-0500 Body weight 76.2 kg Akash O Mccauley Work Phone: [facility] Work Phone: 07-11-2022 08:44-0500 Diastolic blood pressure 82 mm[Hg] Akash O Mccauley Work Phone: [facility] Work Phone: 07-11-2022 08:44-0500 Heart rate 72 /min Akash O Mccauley Work Phone: [facility] Work Phone: 07-11-2022 08:44-0500 Systolic blood pressure 140 mm[Hg] Akash O Mccauley Work Phone: [facility] Work Phone: 05-22-2022 08:30-0400 Body height 157.48 cm Akash O Mccauley Work Phone: [facility] Work Phone: 05-22-2022 08:30-0400 Body mass index (BMI) [Ratio] 30.18 kg/m2 Akash O Mccauley Work Phone: [facility] Work Phone: 05-22-2022 08:30-0400 Body surface area Derived from formula 1.76 m2 Akash O Mccauley Work Phone: [facility] Work Phone: 05-22-2022 08:30-0400 Body temperature 97.5 [degF] Akash O Mccauley Work Phone: [facility] Work Phone: 05-22-2022 08:30-0400 Body weight 74.84 kg Akash O Mccauley Work Phone: [facility] Work Phone: 05-22-2022 08:30-0400 Diastolic blood pressure 80 mm[Hg] Akash O Mccauley Work Phone: [facility] Work Phone: 05-22-2022 08:30-0400 Heart rate 72 /min Akash O Mccauley Work Phone: [facility] Work Phone: 05-22-2022 08:30-0400 Systolic blood pressure 138 mm[Hg] Akash O Mccauley Work Phone: [facility] Work Phone: 01-15-2022 12:57-0400 Systolic blood pressure 142 mm[Hg] Akash O Mccauley Work Phone: [facility] Work Phone: 01-11-2022 08:21-0400 Body height 157.48 cm Akash O Mccauley Work Phone: [facility] Work Phone: 01-11-2022 08:21-0400 Body mass index (BMI) [Ratio] 29.71 kg/m2 Akash O Mccauley Work Phone: [facility] Work Phone: 01-11-2022 08:21-0400 Body surface area Derived from formula 1.75 m2 Akash O Mccauley Work Phone: [facility] Work Phone: 01-11-2022 08:21-0400 Body weight 73.68 kg Akash O Mccauley Work Phone: [facility] Work Phone: 01-11-2022 08:21-0400 Diastolic blood pressure 70 mm[Hg] Akash O Mccauley Work Phone: [facility] Work Phone: 01-11-2022 08:21-0400 Heart rate 92 /min Akash O Mccauley Work Phone: [facility] Work Phone: 01-11-2022 08:21-0400 Systolic blood pressure 142 mm[Hg] Akash O Mccauley Work Phone: [facility] Work Phone: 11-02-2021 13:54-0400 Body height 157.48 cm Aksah O Mccauley Work Phone: [facility] Work Phone: 11-02-2021 13:54-0400 Body mass index (BMI) [Ratio] 29.37 kg/m2 Akash O Mccauley Work Phone: [facility] Work Phone: 11-02-2021 13:54-0400 Body surface area Derived from formula 1.74 m2 Akash O Mccauley Work Phone: [facility] Work Phone: 11-02-2021 13:54-0400 Body weight 72.83 kg Akash O Mccauley Work Phone: [facility] Work Phone: 11-02-2021 13:54-0400 Diastolic blood pressure 72 mm[Hg] Akash O Mccauley Work Phone: [facility] Work Phone: 11-02-2021 13:54-0400 Heart rate 72 /min Akash O Mccauley Work Phone: [facility] Work Phone: 11-02-2021 13:54-0400 Systolic blood pressure 126 mm[Hg] Akash O Mccauley Work Phone: [facility] Work Phone: 10-20-2021 09:39-0400 Body height 157.48 cm Akash O Mccauley Work Phone: [facility] Work Phone: 10-20-2021 09:39-0400 Body mass index (BMI) [Ratio] 29.63 kg/m2 Akash O Mccauley Work Phone: [facility] Work Phone: 10-20-2021 09:39-0400 Body surface area Derived from formula 1.75 m2 Akash O Mccauley Work Phone: [facility] Work Phone: 10-20-2021 09:39-0400 Body weight 73.48 kg Akash O Mccauley Work Phone: [facility] Work Phone: 10-20-2021 09:39-0400 Diastolic blood pressure 82 mm[Hg] Akash O Mccauley Work Phone: [facility] Work Phone: 10-20-2021 09:39-0400 Heart rate 76 /min Akash O Mccauley Work Phone: [facility] Work Phone: 10-20-2021 09:39-0400 Systolic blood pressure 138 mm[Hg] Akash O Mccauley Work Phone: [facility] Work Phone: 05-23-2021 11:06-0400 Body height 157.48 cm Akash Eliaser Work Phone: [facility] [address] Work Phone: 05-23-2021 11:06-0400 Body mass index (BMI) [Ratio] 31.14 kg/m2 Akash Eliaser Work Phone: [facility] 300 Work Phone: 05-23-2021 11:06-0400 Body surface area Derived from formula 1.79 m2 Akash Colladoyder Work Phone: [facility] 300 Work Phone: 05-23-2021 11:06-0400 Body temperature 97.7 [degF] Akash Eliaser Work Phone: [facility] 300 Work Phone: 05-23-2021 11:06-0400 Body weight 77.23 kg Akash Mccauley Work Phone: [facility] [address] Work Phone: 05-23-2021 11:06-0400 Diastolic blood pressure 82 mm[Hg] Akash Cinthya Mccauley Work Phone: [facility] 300 Work Phone: 05-23-2021 11:06-0400 Heart rate 79 /min Akash Cinthya Mccauley Work Phone: [facility] 300 Work Phone: 05-23-2021 11:06-0400 Systolic blood pressure 149 mm[Hg] Akash Mendes Mccauley Work Phone: [facility] 300 Work Phone: 05-11-2021 08:54-0400 Body height 157.48 cm Akash Mccauley Work Phone: [facility] 300 Work Phone: 05-11-2021 08:54-0400 Body mass index (BMI) [Ratio] 30.91 kg/m2 Akash Mccauley Work Phone: [facility] 300 Work Phone: 05-11-2021 08:54-0400 Body surface area Derived from formula 1.78 m2 Akash Mccauley Work Phone: [facility] 300 Work Phone: 05-11-2021 08:54-0400 Body temperature 98.6 [degF] Akash Mccauley Work Phone: [facility] 300 Work Phone: 05-11-2021 08:54-0400 Body weight 76.66 kg Akash Mccauley Work Phone: [facility] 300 Work Phone: 05-11-2021 08:54-0400 Diastolic blood pressure 60 mm[Hg] Akash Mccauley Work Phone: [facility] 300 Work Phone: 05-11-2021 08:54-0400 Systolic blood pressure 126 mm[Hg] Akash Mccauley Work Phone: [facility] 300 Work Phone: 05-10-2021 11:38-0400 Body height 157.4 cm Akash Mccauley Other Phone: [facility] 05-10-2021 11:38-0400 Body temperature 98.06 [degF] Akash Mccauley Other Phone: [facility] 05-10-2021 11:38-0400 Diastolic blood pressure 79 mm[Hg] Akash Mccauley Other Phone: [facility] 05-10-2021 11:38-0400 Heart rate 79 /min Akash Eliaser Other Phone: [facility] 05-10-2021 11:38-0400 SaO2% (BldA) [Mass fraction] 95 % Akash Eliaser Other Phone: [facility] 05-10-2021 11:38-0400 Systolic blood pressure 134 mm[Hg] Akash Eliaser Other Phone: [facility] 02-01-2021 10:34-0400 Body height 157.48 cm Akash O Mccauley [facility] Phone: [facility] Work Phone: 02-01-2021 10:34-0400 Body mass index (BMI) [Ratio] 30.59 kg/m2 Akash O Mccauley Work Phone: [facility] Work Phone: 02-01-2021 10:34-0400 Body surface area Derived from formula 1.77 m2 Akash O Mccauley Work Phone: [facility] Work Phone: 02-01-2021 10:34-0400 Body weight 75.86 kg Akash O Mccauley Work Phone: [facility] Work Phone: 02-01-2021 10:34-0400 Diastolic blood pressure 80 mm[Hg] Akash O Mccauley Work Phone: [facility] Work Phone: 02-01-2021 10:34-0400 Heart rate 68 /min Akash O Mccauley Work Phone: [facility] Work Phone: 02-01-2021 10:34-0400 Systolic blood pressure 122 mm[Hg] Akash O Mccauley Work Phone: [facility] Work Phone: 01-04-2021 08:08-0400 Body height 157.48 cm Akash Eliaser Work Phone: [facility] [address] [place] Work Phone: 01-04-2021 08:08-0400 Body mass index (BMI) [Ratio] 30.76 kg/m2 Akash O Mccauley Work Phone: [facility]Lctozfsbwc[facility] [address] Work Phone: 01-04-2021 08:08-0400 Body surface area Derived from formula 1.78 m2 Akash Eliaser Work Phone: [facility]-Twkqpobhnl-Tcqnac d [address] Work Phone: 01-04-2021 08:08-0400 Body weight 76.29 kg Akash Eliaser Work Phone: EP-Iegvhsmvbr-Sqbhjz [facility] [address] Work Phone: 01-04-2021 08:08-0400 Diastolic blood pressure 64 mm[Hg] Akash Colladoyder Work Phone: [facility]-Lffzknisuw-Dzqepo [facility] [address] Work Phone: 01-04-2021 08:08-0400 Heart rate 68 /min Akash Eliaser Work Phone: IF-Lubepiplkg-Nsrijd d [address] Work Phone: 01-04-2021 08:08-0400 Systolic blood pressure 120 mm[Hg] Akash O Mccauley Work Phone: XX-Fhsnglrvsa-Vxndji [facility] [address] Work Phone: Encounters Encounter Date Encounter Type Care Provider Facility Start: 08-22-2023 End: 08-23-2023 ambulatory AKASH MCCAULEY [facility] Start: 08-22-2023 End: 08-22-2023 Subsequent hospital visit by physician [address] Procedures Date Procedure Procedure Detail Performing [...] 02-23-2030 Screening for malignant neoplasm of colon [facility] Start: 08-22-2028 Lipid panel Lipid Panel [facility] Start: 01-12-2027 Lipid panel Lipid Panel [facility] Start: 08-21-2024 Screening for malignant neoplasm of breast Mammogram [facility] Start: 08-08-2024 Medicare Annual Wellness Visit Medicare Annual Wellness Visit (AWV) [facility] Start: 08-06-2024 End: 08-06-2024 Patient encounter procedure 08/06/2024 10:00 AM EST Office Visit [facility] [address] [place] [id number] Asa Alegria PA-C [address] [facility], [address] [place] [id number] [facility] Start: 08-22-2023 End: 08-22-2023 Patient encounter procedure 08/22/2023 8:00 AM EST Appointment [address] [phone] [facility] Start: 08-07-2023 End: 08-07-2024 CBC W Auto Differential panel - Blood CBC and Auto Differential Lab Routine Asthmatic bronchitis without complication, unspecified asthma severity, unspecified whether persistent Expected: 08/07/2023 (Approximate), Expires: 08/07/2024 [facility] Work Phone: Immunizations Immunization Date Immunization Notes Care Provider Fa cility 08-07-2023 Pneumococcal conjuga te vaccine, 20-valent (PREVNAR 20) [facility] Work Phone: 01-01-2019 pneumococcal conjuga te vaccine, 13 valent; Translations: [Prevnar 13 Intramuscular Suspension] Akash Mccauley Work Phone: [facility]cw[facility]zl[facility]Dhfm[facility]ori [facility] Work Phone: Payers Date Payer Category Payer Medicare [id number] 2015 Medicare MEDICARE MEDICAR E PART A AND B [id number] 2015-Present [address] [place] [address] [id number] 2015 Private Health Insurance [employer] [id number] 2015-Present [phone] [address] [address] [place] [address] [id number] 2015 Unknown 2015 Unknown [id number] 1950 Unknown [id number] [id number]. 2.356 1950 Unknown [id number] [id number]. 2.356 1950 Unknown [id number] [id number]. 2.356 1950 Unknown [id number] [id number]. 2.356 1950 Unknown [id number] [id number]. 2.356 1950 Unknown [id number] [id number]. 2.1069 1950 Unknown [id number] [id number]. 2.1069 1950 Unknown [id number] [id number]. 2.1069 1950 Unknown [id number] [id number]. 2.1244 1950 Unknown [id number] [id number]. 2.1245 1950 Unknown [id number] [id number]. 2.1243 1950 Unknown [id number]. 2.1243 Social History Date Type Detail Facility Start: 08-07-2023 Former smoker Former smoker [address] Work Phone: Tobacco smoking consumption unknown [facility] Start: 08-07-2023 Tobacco smoking status NHIS Ex-smoker [facility] Work Phone: End: 07-29-1974 History of tobacco use Current smoker [facility] Work Phone: End: 07-29-1974 History of tobacco use Cigarette Smoker [facility] Work Phone: Start: 08-07-2023 Tobacco use and exposure Smokeless tobacco non-user [facility] Work Phone: Start: 08-07-2023 Alcohol intake Current drinke r of alcohol (finding) [facility] Work Phone: Start: 08-07-2023 Tobacco use panel Unive [facility] Work Phone: Start: 08-07-2023 Alcohol Comment occasional [facility] Work Phone: Start: 1950 Sex Assigned At Not on file [facility] Work Phone: Start: 07-28-2023 End: 08-21-2023 Exposure to SARS-CoV-2 (event) Not sure [facility] Clinical Notes 01-26-2020 to 08-07-2023 [...] bilateral screening tomosynthesis documented in this encounter [facility] Work Phone: 10-17-2021 History of [...] days before UTI symptoms started on 10/17/21. -[facility] Work Phone: 10-17-2021 History of Present [...] days before UTI symptoms started on 10/17/21. [facility] Work Phone: 05-09-2021 History of Present illness [...] caution to not overuse [facility] left arm. [facility] Work Phone: [...] she is susceptible to nausea with IVs. [facility] Work Phone: 01-26-2020 History of Present illness [...] traveling with a group of 5 widows [facility] Work Phone: documented in this encounter [facility] Work Phone: Evaluation note* Diagnosis Screening mammogram, encounter for documented in this encounter [facility] Work Phone: Evaluation note* Diagnosis Ischemic heart disease screen Screening for ischemic heart disease documented in this encounter [facility] Work Phone: Evaluation note* Diagnosis Screening mammogram, encounter for documented in this encounter [facility] Work Phone: History of Present [...] she used it was last week once. [facility] Work Phone: History of Present illness [...] doing well. No concerns at this time. [facility] Work Phone: History of Present illness [...] yesterday. Drinking extra water and cranberry juice. [facility] Work Phone: History of Present illness [...] not want to take statins. Risk 14. -[facility] Work Phone: Reason for referral (narrative)* Consultation (Routine) - Authorized Specialty Diagnoses / Procedures Referred By Matthew t Referred To Contact Primary Care Diagnoses Routine general medical examination at health care facility Procedures 1 Year Follow Up In Primary Care - Wellness Exam Akash Mccauley MD [address] [facility], [place] [phone] Referral ID Status Reason Start Date Expiration Date V isits Requested Visits Authorized [id number] Authorized 08/07/2023 08/06/2024 1 1 * Imaging (Routine) - Authorized Specialty Diagnoses / Procedures Referred By Contac t Referred To Contact Radiology Diagnoses Screening mammogram, encounter for Procedures BI mammo bilateral screening tomosynthesis Akash Mccauley MD [address] [facility], [place] [phone] Referral ID Status Reason Start Date Expiration Date Visits Requested Visits Authorized [id number] Authorized Perform Procedure 08/07/2023 08/06/2024 1 1 * Imaging (Routine) - Pending Review Specialty Diagnoses / Procedures Referred By Matthew t Referred To Contact Radiology Diagnoses Ischemic heart disease screen Procedures CT cardiac scoring wo IV contrast Akash Mccauley MD [address] [facility], [place] [id number] Referral ID Status Reason Start Date Expiration Date Visits Requested Visits Authorized [id number] Pending Review Perform Procedure 08/07/2023 08/06/2024 1 1 [facility] Work Phone: Summary Purpose Family [...] Akash Mccauley MD [address] [facility], [place] [phone] Referral ID Status Reason Start Date Expiration Date Visits Requested Visits Authorized [id number] Authorized Perform Procedure 08/07/2023 08/06/2024 1 1 Specialty Diagnoses / Procedures Referred By Matthew bagley Referred To Contact Radiology Diagnoses Ischemic heart disease screen Procedures CT cardiac scoring wo IV contrast Akash Mccauley MD [address] [facility], [address] [address] Referral ID Status Reason Start Date Expiration Date Visits Requested Visits Authorized [id number] Pending Review Perform Procedure 08/07/2023 08/06/2024 1 1 Additional Source Comments INFORMATION SOURCE (unrecogn ized section and content) DATE CREATED AUTHOR AUTHOR'S ORGANIZ ATION 07/18/2022 [facility] DATE CREATED AUTHOR AUTHOR'S ORGANIZ ATION 07/18/2022 [employer] DATE CREATED AUTHOR AUTHOR'S ORGANIZ ATION 07/28/2022 [facility] DATE CREATED AUTHOR AUTHOR'S ORGANIZ ATION 08/11/2023 [facility] DATE CREATED AUTHOR AUTHOR'S ORGANIZ ATION 08/26/2023 [facility] DATE CREATED AUTHOR AUTHOR'S ORGANIZ ATION 08/28/2023 [facility] <item> Privacy Markings (unrecogniz ed section [...] tomosynthesis Akash Mccauley MD [address] [facility], [place] [phone] Referral ID Status Reason Start Date Expiration Date Visits Requested Visits Authorized [id number] Authorized Perform Procedure 08/07/2023 08/06/2024 1 1 Specialty Diagnoses / Procedures Referred By Contac t Referred To Contact Radiology Diagnoses Ischemic heart disease screen Procedures CT cardiac scoring wo IV contrast Akash Mccauley MD [address] [facility] [place] [phone] Referral ID Status Reason Start Date Expiration Date Visits Requested Visits Authorized [id number] Pending Review Perform Procedure 08/07/2023 08/06/2024 1 1 Care Teams (unrecognized sec tion and content) Shot Hole Driller Relationship Specialty Start Date End Date Akash Mccauley MD [address] [facility] [address] [place] [phone] PCP - General 08/19/19 Iliana Maciel APRN-SAW STRAIGHTENER [address] [facility], [address] [place] [phone] PCP - [facility] ACO Attributed Provider 01/26/23 Shot Hole Driller Relationship Specialty Start Date End Date Akash Mccauley MD [address] [facility] [address] [place] [phone] PCP - General 08/19/19 Iliana Maciel, DATA CONTROL ASSISTANT-SAW STRAIGHTENER [address] [facility] [address] [place] [address] [facility] - [facility] Attributed Provider 01/26/23 FOR RECORDS PERTAINING [...] BE BASED ON THE PRIMARY CLINICAL RECORDS. [facility]. provides no warranty or guarantee of the accuracy or completeness of information in this document.
[2023-09-03 16:10] LABS: Anti-Parietal Cell AB, QN 3.9 Units (0.0-20.0); Cytoplasmic Ab (C-ANCA) <1:20 titer (Neg:<1:20); Gastrin, Serum 40 pg/mL (0-115); IgG, Quant 597 mg/dL (586-1602); Immunoglobulin A 80 mg/dL (64-422); Immunoglobulin E 25 IU/mL (6-495); Immunoglobulin G, Subclass 1 401 mg/dL (248-810); Immunoglobulin G, Subclass 2 116 mg/dL (130-555); Immunoglobulin G, Subclass 3 25 mg/dL (15-102); Immunoglobulin G, Subclass 4 13 mg/dL (2-96); Immunoglobulin M 61 mg/dL (26-217); Intrinsic Factor Ab 1.1 AU/mL (0.0-1.1); Perinuclear Ab (P-ANCA) <1:20 titer (Neg:<1:20)
[2023-09-04 05:07] LABS: Anti-Centromere B Ab <0.2 AI (0.0-0.9); Anti-Chromatin <0.2 AI (0.0-0.9); Anti-Jo <0.2 AI (0.0-0.9); Anti-Scleroderma-70 AB <0.2 AI (0.0-0.9); Anti-dsDNA Ab <1 IU/mL (0-9); Beef <0.10 kU/L (Class 0); Chocolate <0.10 kU/L (Class 0); Codfish <0.10 kU/L (Class 0); Corn 0.14 kU/L (Class 0/I); Egg, Whole <0.10 kU/L (Class 0); Milk (Cow) <0.10 kU/L (Class 0); Mussels <0.10 kU/L (Class 0); Peanut 0.13 kU/L (Class 0/I); Pork <0.10 kU/L (Class 0); RNP Ab 0.2 AI (0.0-0.9); SJOGREN'S Anti-SS-A test < 0.2 AI (0.0-0.9); SJOGREN'S Anti-SS-B test < 0.2 AI (0.0-0.9); Salmon <0.10 kU/L (Class 0); Shrimp <0.10 kU/L (Class 0); Smith Ab <0.2 AI (0.0-0.9); Soybean 0.12 kU/L (Class 0/I); Tuna <0.10 kU/L (Class 0); Wheat 0.13 kU/L (Class 0/I)
== END | disposition home or self-care (01) ==
PROVIDERS: PCP Family Medicine; Referring Provider Internal Medicine Gastroenterology; Visit Provider Internal Medicine Gastroenterology
DX: D64.9 Anemia, unspecified (principal)
CPT/HCPCS: 36415; 82607; 82746; 82784; 82785; 82787; 82941; 83516; 85025; 86003; 86005; 86225; 86235; 86256; 86340

== ENCOUNTER → 2023-10-15 | Outpatient (CLI) | payer MEDICARE, OTHER, SELFPAY ==
[2023-10-15 13:54] VITALS: PULSE 101; PULSE 104; PULSE 108; PULSE 110; PULSE 111; O2SAT 89; O2SAT 90; O2SAT 91; O2SAT 92; O2SAT 96; O2SAT 98
--- NOTE | 2023-10-15 14:05 | CPS ---
PATIENT DID WELL WITH WALK TEST. CONVERSED THROUGH FIRST 2 MINUTES OF TESTING, WITH SPO2 FALLING TO 89%. PURSED LIP BREATHING ENCOURAGED FOR REMAINDER OF TESTING WITH LITTLE CONVERSATION, SPO2 MAINTAINED LOW 90'S ON ROOM AIR. PATIENT DENIED NEED FOR REST BREAKS DURING TESTING AND WALKED 1252FT.
--- NOTE | 2023-10-16 13:19 | PCM.PSN.6M ---
PSN 6 Minute Walk Test 6 Minute Walk Test 6 Minute Walk Test: 6 Minute Walk Test PSN:6-Minute Walk Test Start: 10/15/23 13:35 Freq: Status: Active Protocol: [id number] Document 10/15/23 13:54 [facility] (Rec: 10/15/23 14:08 [facility] [id number]) 6 Minute Walk Test Date Performed 10/15/23 Time Performed 12:30 Height 5 ft 2 in Weight: 148 lb Weight in Pounds 148.[address]: Matt Skinner Assistive device used: None Pre-test Oxygen Delivery Method Room Air Pulse Ox 98 Pulse Rate (60-100) 104 H Dyspnea Gladis Scale (0-10) 1 1st minute Oxygen Delivery Method Room Air Pulse Ox 91 Pulse Rate (60-100) 108 H Dyspnea Gladis Scale (0-10) 2 Number of Rests Taken 0 2nd minute Oxygen Delivery Method Room Air Pulse Ox 89 Pulse Rate (60-100) 110 H Dyspnea Gladis Scale (0-10) 2 Number of Rests Taken 0 3rd minute Oxygen Delivery Method Room Air Pulse Ox 92 Pulse Rate (60-100) 111 H Dyspnea Gladis Scale (0-10) 2 Number of Rests Taken 0 4th minute Oxygen Delivery Method Room Air Pulse Ox 91 Pulse Rate (60-100) 111 H Dyspnea Gladis Scale (0-10) 2 Number of Rests Taken 0 5th minute Oxygen Delivery Method Room Air Pulse Ox 90 Pulse Rate (60-100) 108 H Dyspnea Gladis Scale (0-10) 2 Number of Rests Taken 0 6th minute Oxygen Delivery Method Room Air Pulse Ox 91 Pulse Rate (60-100) 110 H Dyspnea Gladis Scale (0-10) 2 Number of Rests Taken 0 Post-test Oxygen Delivery Method Room Air Pulse Ox 96 Pulse Rate (60-100) 101 H Dyspnea Gladis Scale (0-10) 1 Full Laps Walked 21 Partial Lap, Number of Tiles Walked 13 Total Distance Walked (ft) 1252 10/15/23 14:05 Cardiopulmonary Services by Estephania Ramsey PATIENT DID WELL WITH WALK TEST. CONVERSED THROUGH FIRST 2 MINUTES OF TESTING, WITH SPO2 FALLING TO 89%. PURSED LIP BREATHING ENCOURAGED FOR REMAINDER OF TESTING WITH LITTLE CONVERSATION, SPO2 MAINTAINED LOW 90'S ON ROOM AIR. PATIENT DENIED NEED FOR REST BREAKS DURING TESTING AND WALKED 1252FT. Initialized on 10/15/23 14:05 - END OF NOTE Interpretation Interpretation: The patient ambulated 1252 feet over the course of 6 minutes beginning on room air without assistive devices. Pretesting oxygen saturation was noted to be 98% on room air. With ambulation, the calixto oxygen saturation was 89%. This represents a significant exertional oxygen desaturation, consistent with a pulmonary limitation to exercise tolerance. Recommendations Recommendations: There is no indication for the use of supplemental oxygen at this time. However, close interval follow-up was recommended, given the degree of oxygen desaturation noted during this study.
== END | disposition home or self-care (01) ==
PROVIDERS: PCP Family Medicine; Referring Provider Internal Medicine Critical Care Medicine; Visit Provider Internal Medicine Critical Care Medicine
DX: J44.9 Chronic obstructive pulmonary disease, unspecified (principal)
CPT/HCPCS: 94618